=== PATIENT | male | born 1995 | race Caucasian/White ===

== ENCOUNTER 2016-07-27 18:14 | Emergency (ER) | payer SELFPAY ==
[2016-07-27] MEDS ORDERED: ZOFRAN ONE (18:18)
[2016-07-27] MEDS ORDERED: MORPHINE ONE (18:18)
[2016-07-27] MEDS ORDERED: ZOFRAN IV ONE (18:22)
[2016-07-27] MEDS ORDERED: MORPHINE IV ONE (18:22)
[2016-07-27] MEDS ORDERED: AMIDATE IV ONE (19:05)
--- NOTE | 2016-07-27 19:12 | Emergency Department Report ---
ED Lower Extremity HPI - General Chief Complaint: Extremity Injury, Lower Stated Complaint: LEFT LEG FRACTURE Time Seen by Provider: 07/27/16 18:21 Source: patient, EMS, RN notes reviewed Mode of arrival: Wheelchair Limitations: No Limitations, Physical Limitation - History of Present Illness Initial Comments: 21-year-old male presents to the emergency department complaining of left lower leg pain. Patient states he was at work and fell off of a ladder. He states he fell approximately 5 feet. He denies hitting his head. There was no loss of consciousness. Patient states he slipped off a ladder. There are no preceding symptoms. Patient is complaining of sharp pain in his lower leg. He denies numbness or tingling. There are no other complaints. MD Complaint: leg injury, fall -: Sudden, This afternoon Injury: Leg: Left Type of Injury: blunt Place: work Severity: moderate Severity scale (0 -10): 6 Improves With: immobilization Worsens With: weight bearing Context: fall Associated Symptoms: unable to bear weight - Related Data Previous Rx's Medication Instructions Recorded Last Taken Type HYDROcodone/APAP 5-325 [[place] 1 each PO Q6HR PRN #20 tablet 07/27/16 Unknown Rx 5/325] Allergies Allergy/AdvReac Type Severity Reaction Status Date / Time No Known Allergies Allergy Verified 07/27/16 18:30 ED Review of Systems ROS: Stated complaint: LEFT LEG FRACTURE Other details as noted in HPI Comment: All other systems reviewed and negative Musculoskeletal: as per HPI, other (left lower leg pain) ED Past Medical Hx - Past Medical History Previous Medical History?: No - Surgical History Past Surgical History?: No - Family History Family history: no significant - Social History Smoking Status: Never Smoker Substance Use Type: None - Medications Home Medications: Home Medications Medication Instructions Recorded Confirmed Last Taken Type HYDROcodone/APAP 5-325 [[place] 1 each PO Q6HR PRN #20 tablet 07/27/16 Unknown Rx 5/325] ED Physical Exam - General Limitations: No Limitations, Physical Limitation General appearance: alert, in distress (mild distress secondary to pain) - Head Head exam: Present: atraumatic, normocephalic - Eye Eye exam: Present: normal appearance, PERRL, EOMI - ENT ENT exam: Present: normal exam, normal orophraynx, mucous membranes moist - Neck Neck exam: Present: normal inspection, full ROM. Absent: tenderness - Respiratory Respiratory exam: Present: normal lung sounds bilaterally. Absent: respiratory distress - Cardiovascular Cardiovascular Exam: Present: regular rate, normal rhythm, normal heart sounds - GI/Abdominal GI/Abdominal exam: Present: soft, normal bowel sounds. Absent: distended, tenderness - Extremities Exam Extremities exam: Present: other (obvious deformity of the left lower leg midway between the knee and ankle. Mild edema and ecchymosis noted. Sensation is intact. Patient is able to move his foot. Remainder of extremities are unremarkable.) - Back Exam Back exam: Present: normal inspection, full ROM. Absent: tenderness - Neurological Exam Neurological exam: Present: alert, oriented X3. Absent: motor sensory deficit - Skin Skin exam: Present: warm, dry, intact ED Course Vital Signs 07/27/16 19:27 Temperature [ 98 F Pre-Procedure] Pulse Rate [ 112 H Intra-Procedure ] Pulse Rate [Pre 110 H -Procedure] Respiratory 16 Rate [Intra- Procedure] Respiratory 16 Rate [Pre- Procedure] Blood Pressure 154/99 [Intra- Procedure] Blood Pressure 100/66 [Pre-Procedure] O2 Sat by Pulse 95 Oximetry [ Intra-Procedure ] - Moderate Sedation Indications: fracture/dislocation redu ASA Class: I Mallampati Airway Score: 1 Preparation: court monitor applied, pulse oximeter, capnometry used, supplemental O2 applied, IV secured IV Etomidate Dose (mgs): 20 Complications: none Patient Tolerated Procedure: well Additional Comments: Total sedation time was 15 minutes. - Orthopedic Fracture Reduction Fracture #1 Consent Obtained: written consent Time Out Performed: Yes Side: left Fracture Reduction Location: tibia, fibula Analgesia: moderate sedation Technique: direct manipulation Post Reduction X-rays Demonstrate: acceptable reduction Post-Reduction Neuro Exam: intact Post-Reduction Vascular Exam: intact Splint Applied: Yes Patient Tolerated Procedure: well ED Lower Extremity MDM - Radiology Data Radiology results: image reviewed interpreted by me: X-rays of the left tibia and fibula reveal a mildly displaced fracture of both bones. - Medical Decision Making Imaging results reviewed and discussed with the patient. Case was discussed with Dr. Veliz, orthopedics. Under procedural sedation, the patient's fracture was reduced, see associated procedure note. Patient will be provided crutches and will be instructed to not bear weight on the left leg. He'll be discharged home to follow up with orthopedics. - Differential Diagnosis fracture, contusion Critical care attestation.: If time is entered above; I have spent that time in minutes in the direct care of this critically ill patient, excluding procedure time. ED Disposition Clinical Impression: Closed fracture of left tibia and fibula Qualifiers: Encounter type: initial encounter Qualified Code(s): S82.202A - Unspecified fracture of shaft of left tibia, initial encounter for closed fracture; S82.402A - Unspecified fracture of shaft of left fibula, initial encounter for closed fracture Disposition: DISCHARGED TO HOME OR SELFCARE Is pt being admited?: No Condition: Stable Instructions: Leg Fracture (ED) Prescriptions: HYDROcodone/APAP 5-325 [[place] 5/325] 1 each PO Q6HR PRN #20 tablet PRN Reason: Pain Referrals: GIOVANI VELIZ MD [Staff Physician] - 3-5 Days Time of Disposition: 19:47
[2016-07-27 19:56] VITALS: BP 124/81
--- NOTE | 2016-07-28 10:01 | XRay Report ---
Left tibia: Trauma, pain. Transverse fractures through the midshaft of the fibula and tibia are present with multiple tibial fragments. There is anterior displacement of the distal tibia fragment as well as the distal fibular fragment with approximately 15 mm of overlap at the fibula fracture. There is associated swelling. The visualized proximal and distal bones and joints are intact. Impressions: Displaced mid shaft fibula and tibia fractures. Left tibia: Postreduction AP and lateral views demonstrates a surrounding cast with reduction of the displaced fractures. There is still mild offset at both tibia and fibula fractures with otherwise good alignment.
== END 2016-07-27 20:24 | disposition home or self-care (01) ==
LOC: ED 18:14
DX: S82.422A Displaced transverse fracture of shaft of left fibula, initial encounter for closed fracture (principal); S82.302A Unspecified fracture of lower end of left tibia, initial encounter for closed fracture; W11.XXXA Fall on and from ladder, initial encounter; Y93.89 Activity, other specified; Y92.63 Factory as the place of occurrence of the external cause; Y99.0 Civilian activity done for income or pay
CPT/HCPCS: 27752; 73590; 96374; 96375; 99284; J2270; J2405